=== PATIENT | female | born 1930 | race Caucasian/White ===

== ENCOUNTER → 2016-05-17 | Day surgery (SDC) | payer OTHER, BC, MEDICAID ==
[~2016-05-17] MED LIST: LIDO/EPI 1% **for epidural** 30 ML SDV ONE; SODIUM TETRADECYL SULFATE 60 MG/2 ML VIAL IV ONE
--- NOTE | 2016-05-17 15:38 | IR ---
Laser Ablation, Left Great Saphenous Vein Multivessel Sclerotherapy INDICATION: Below the knee incompetence of the great saphenous system, ulceration, and cellulitis. Significant edema. Informed Consent: Obtained from the patient. Risks and benefits were discussed. Cross Cutting Measure: Patient's current list of medications including all known prescriptions, over -the-counters, herbals, and vitamin/mineral/dietary supplements are reviewed. Medications' name, dos age, frequency, and route of administration are confirmed. Patient is a non-smoker. Prophylactic Antibiotic: Cefazolin was not ordered and administered for antimicrobial prophylaxis be cause it was not medically necessary. VTE Prophylaxis: There is not an order for VTE prophylaxis to be given within 24 hours of the proced ure end time. VTE prophylaxis was not given because it was not medically necessary. Technique: Patient is placed in supine position. A "timeout" procedure was performed to identify th e correct patient and the correct procedure. 1% Xylocaine was used for local anesthetic. All elemen ts of maximal sterile barrier technique, including cap, mask, sterile gown, sterile gloves, large kallie rile sheet, hand hygiene, and 2% chlorhexidine for cutaneous antisepsis, followed. Ultrasound evaluation of potential access site was performed. After successfully identifying a paten t vessel, ultrasound guidance was used to puncture the vessel. A permanent recording was created for the patient's record. When ultrasound is used, sterile gel and probe covers are used. The great saphenous vein is accessed under ultrasound guidance at the level of the ankle. Micropunct ure sheath is advanced, followed by laser catheter, advanced to lower thigh, just above where the inc ompetent tributary comes off of. Multivessel sclerotherapy was performed using 1% SDS. This sufficiently covered multiple tributaries throughout the calf and the ulceration region, as well as the distal thigh. Tumescent anesthesia is delivered along the course of the great saphenous vein, and laser ablation wa s performed. A total of 2497 joules were delivered in 416 seconds. The patient tolerated the proced ure well. Medication: Local anesthetics only. IMPRESSIONS 1. Great saphenous vein ablated from ankle to distal thigh. 2. Multivessel sclerotherapy performed. 3. Patent and competent deep system. PLAN 1. We were able to apply the patient's thigh high compression stocking today, after the procedure, a nd after application of wound care dressing to the ulcer. 2. I would highly recommend keeping this dressing on for the next 5 days, x24 hours with sleep. 3. After that, the patient can graduate down to knee heights for only when she is awake. 4. Continued application of knee-high compression is recommended until this ulcer heals, and subsequ ently intermittently on an as-needed basis to prevent future problems from developing. Follow up: The patient will follow up with me in 1 month.
== END | disposition home or self-care (01) ==
LOC: FIMAGING 08:44
PROVIDERS: ATTEND Radiology Diagnostic Radiology
PROC: 065Q3ZZ Destruction of Left Saphenous Vein, Percutaneous Approach (ICD-10-PCS; principal; 2016-05-17)
PROC: 065Y3ZZ Destruction of Lower Vein, Percutaneous Approach (ICD-10-PCS; principal; 2016-05-17)
DX: I83.028 Varicose veins of left lower extremity with ulcer other part of lower leg (principal); I83.892 Varicose veins of left lower extremity with other complications

== ENCOUNTER 2016-05-23 18:16 | Emergency (ER) | payer OTHER, BC, MEDICAID ==
[2016-05-23 18:24] VITALS: TEMP 98.1
--- NOTE | 2016-05-23 19:35 | EDPHY ---
H & P Stated Complaint: Chronic wound LLE x "yrs" Home health thinks it's worse; sent for eval Time Seen by Provider: 05/23/16 19:24 HPI/ROS: CHIEF COMPLAINT: Venous stasis wound HISTORY OF PRESENT ILLNESS: The patient is an 86-year-old female with a history of venous stasis with a wound to her left anterior chen has been present for greater than 2 years. She was admitted to the hospital this summer and was culture positive for MR JACKSON treated with doxycycline. She follows at the wound clinic with Dr. Soumya Ocampo. She also has history of atrial fibrillation and is on Eliquis. She gets 3 times a week wound care from home health. They were concerned today that it is starting to look worse. There is mild erythema around the wound. The son states that it typically is only about 1 cm extending around the wound and now is about 5 or 6. It is slightly warm to touch. She is afebrile. No drainage. Son states that is slightly foul smelling. REVIEW OF SYSTEMS: Constitutional: denies: chills, fever, recent illness, recent injury EENTM: denies: blurred vision, double vision, nose congestion Respiratory: denies: cough, shortness of breath Cardiac: denies: chest pain, irregular heart rate, lightheadedness, palpitations Gastrointestinal/Abdominal: denies: abdominal pain, diarrhea, nausea, vomiting, blood streaked stools Genitourinary: denies: dysuria, frequency, hematuria, pain Musculoskeletal: denies: joint pain, muscle pain Skin: See HPI Neurological: denies: headache, numbness, paresthesia, tingling, dizziness, weakness Hematologic/Lymphatic: denies: blood clots, easy bleeding, easy bruising Immunologic/allergic: denies: HIV/AIDS, transplant EXAM: GENERAL: Well-appearing, well-nourished and in no acute distress. HEAD: Atraumatic, normocephalic. EYES: Pupils equal round and reactive to light, extraocular movements intact, sclera anicteric, conjunctiva are normal. ENT: TMs normal, nares patent, oropharynx clear without exudates. Moist mucous membranes. NECK: Normal range of motion, supple without lymphadenopathy or JVD. LUNGS: Breath sounds clear to auscultation bilaterally and equal. No wheezes rales or rhonchi. HEART: Regular rate and rhythm without murmurs, rubs or gallops. ABDOMEN: Soft, nontender, normoactive bowel sounds. No guarding, no rebound. No masses appreciated. BACK: No CVA tenderness, no spinal tenderness, step-offs or deformities EXTREMITIES: Quarter size chronic wound to left anterior chen with another dime -sized lesion next to it. Mild surrounding erythema/petechiae approximately 8 cm in diameter. No purulence. NEUROLOGICAL: Cranial nerves II through XII grossly intact. Normal speech, normal gait. 5/5 strength, normal movement in all extremities, normal sensation PSYCH: Normal mood, normal affect. SKIN: Warm, dry, normal turgor, no visible rashes or lesions. Source: Patient Exam Limitations: No limitations - Personal History Current Tetanus Diphtheria and Acellular Pertussis (TDAP): Yes - Medical/Surgical History Hx Asthma: No Hx Chronic Respiratory Disease: No Hx Diabetes: No Hx Cardiac Disease: Yes Hx Renal Disease: No Hx Cirrhosis: No Hx Alcoholism: No Hx HIV/AIDS: No Hx Splenectomy or Spleen Trauma: No Other PMH: Coronary artery disease status post CABG, atrial fibrillation, congestive heart failure - Family History Significant Family History: No pertinent family hx - Social History Smoking Status: Never smoked Alcohol Use: Sober Drug Use: None Constitutional: Initial Vital Signs Temperature (C) 36.7 C 05/23/16 18:20 Heart Rate 76 05/23/16 18:20 Respiratory Rate 18 05/23/16 18:20 Blood Pressure 140/76 H 05/23/16 18:20 O2 Sat (%) 95 05/23/16 18:20 O2 Delivery Mode Room Air Allergies/Adverse Reactions: Sulfa (Sulfonamide Antibiotics) Allergy (Unknown, Verified 05/23/16 18:18) Home Medications: Medication Instructions Recorded Apixaban [Eliquis] 5 mg PO BID 10/08/14 Furosemide [Lasix] 20 mg PO BID 10/08/14 Pramipexole Di-HCl [Pramipexole ER] 0.75 mg PO HS 10/08/14 Simvastatin [Zocor] 20 mg PO HS 10/08/14 Sotalol HCl [Sotalol] 80 mg PO BID 10/08/14 oxyCODONE IR [Oxycodone Ir (RX)] 5 mg PO Q6H PRN 10/08/14 traMADol [Ultram] 50 mg PO TID PRN 10/08/14 Lorazepam 5 mg PO TID 05/11/16 Doxycycline Hyclate [Vibramycin] 100 mg PO BID #30 cap 05/23/16 Losartan Potassium [Cozaar 50 mg 50 mg PO 05/23/16 (*)] Medical Decision Making ED Course/Re-evaluation: 7:40 p.m. I discussed the case with Dr. Mark Rice. We agreed to start the patient back on doxycycline and have her follow up tomorrow in the wound care clinic with Dr. Ocampo. Patient and son agree with this plan. The patient is not toxic appearing. She is afebrile. Her wound was redressed and cultures sent. Some of her wound appears to be more consistent with a contusion. She states that this is likely from her compression stocking that she had been wearing since the ablation. She is now fully anticoagulated on Eliquis did and is no longer wearing stockings. Differential Diagnosis: Partial list of the Differential diagnosis considered include but were not limited to; venous stasis ulcer, wound infection and although unlikely based on the history and physical exam, I also considered trauma, DVT. I discussed these differential diagnoses and the plan with the patient as well as the usual and expected course. The patient understands that the diagnosis is provisional and that in medicine we are not always correct and that further workup is often warranted. Usual and customary warnings were given. All of the patient's questions were answered. The patient was instructed to return to the emergency department should the symptoms at all worsen or return, otherwise to followup with the physician as we discussed. - Data Points Microbiology Results: MICROBIOLOGY 05/23/16 19:53 Leg - Anaerobic Tube/Swab Gram Stain - Final Medications Given: Discontinued Medications Doxycycline Hyclate (Doxycycline Hyclate) 100 mg PO EDNOW ONE PRN Reason: Protocol Stop: 05/23/16 19:40 Last Admin: 05/23/16 20:08 Dose: 100 mg Departure - Departure Disposition: Home, Routine, Self-Care Clinical Impression: Wound infection Condition: Fair Instructions: Wound Infection (ED), Doxycycline (By mouth) Referrals: Anselmo Kunz MD [Primary Care Provider] - As per Instructions Soumya Ocampo MD [Medical Doctor] - As per Instructions Prescriptions: Doxycycline Hyclate [Vibramycin] 100 mg PO BID #30 cap
[2016-05-23] MEDS ORDERED: DOXYCYCLINE HYCLATE 100 MG CAP/TAB PO ONE (19:39)
[2016-05-23 20:08] VITALS: BP 127/101; PULSE 73; RESP 16; O2SAT 97
== END 2016-05-23 20:07 | disposition home or self-care (01) ==
DX: L08.9 Local infection of the skin and subcutaneous tissue, unspecified (principal); I25.810 Atherosclerosis of coronary artery bypass graft(s) without angina pectoris; I50.9 Heart failure, unspecified

== ENCOUNTER → 2016-05-25 | Outpatient (CLI) | payer OTHER, BC, MEDICAID | LOC: BHFA 15:00 | PROVIDERS: ATTEND Internal Medicine Cardiovascular Disease | DX: I48.91 Unspecified atrial fibrillation (principal); I25.10 Atherosclerotic heart disease of native coronary artery without angina pectoris; I10 Essential (primary) hypertension; G47.30 Sleep apnea, unspecified; E78.5 Hyperlipidemia, unspecified ==

== ENCOUNTER → 2017-05-04 | Outpatient (CLI) | payer OTHER, MEDICAID | LOC: FIMAGING 14:36 | PROVIDERS: ATTEND Physician Assistant | DX: R22.42 Localized swelling, mass and lump, left lower limb (principal); R60.9 Edema, unspecified; R06.02 Shortness of breath; R94.31 Abnormal electrocardiogram [ECG] [EKG]; I25.10 Atherosclerotic heart disease of native coronary artery without angina pectoris ==

== ENCOUNTER → 2017-05-18 | Outpatient (CLI) | payer OTHER, MEDICAID ==
[~2017-05-18] MED LIST changes: -LIDO/EPI 1% **for epidural** 30 ML SDV ONE; +REGADENOSON 0.4 MG/5 ML SYR IVP ONE; -SODIUM TETRADECYL SULFATE 60 MG/2 ML VIAL IV ONE
--- NOTE | 2017-05-18 15:28 | CPR ---
[f rep st] NONINVASIVE CARDIAC PROCEDURE REPORT DATE OF PROCEDURE: 05/18/2017 PROCEDURE: Lexiscan nuclear stress test. REASON FOR TEST: 1. Known coronary artery disease, coronary artery bypass graft and valve surgery in 2013. 2. History of atrial fibrillation. ORDERING: SYLVIE Branch. PRIMARY SENIOR CONSUMER INSIGHTS CONSULTANT: Juan R Teague MD DESCRIPTION: Resting EKG shows a sinus bradycardia with a rate of 55. First-degree AV block, anteri or Q-waves. She is asymptomatic at time of test. Resting blood pressure 130/72. Resting heart rate 55. Oxygen saturation 97%. Stress portion: Lexiscan was injected rapidly, followed by saline flush. Cardiolite was then injecte d, followed by saline flush. She remained asymptomatic through the testing. Peak heart rate 68. Pe ak blood pressure 152/82. Oxygen saturation 99%. Occasional PVC on EKG. Recovery: She spontaneously recovered. Resting blood pressure 142/78. Resting heart rate 66. Oxyg en saturation 99%. Resting EKG at 5 minutes of recovery shows a junctional escape rhythm with a rate of 66. At this time, she currently is stable for nuclear imaging. /[id number]/MODL
== END ==
LOC: FIMAGING 12:49
PROVIDERS: ATTEND Physician Assistant
DX: R00.1 Bradycardia, unspecified (principal); I25.10 Atherosclerotic heart disease of native coronary artery without angina pectoris; Z95.1 Presence of aortocoronary bypass graft
CPT/HCPCS: 78452; 93017; 93306; A9500; J2785

== ENCOUNTER 2018-06-12 14:23 | Inpatient (IN) | payer OTHER, MEDICAID ==
--- NOTE | 2018-06-12 14:47 | EDPHY ---
H & P Stated Complaint: SENT FROM [facility] "TO GET THE WATER OFF" Time Seen by Provider: 06/12/18 14:47 HPI/ROS: CHIEF COMPLAINT: "Dr. Teague wanted me to come in and get some of this water off " HISTORY OF PRESENT ILLNESS: The patient is an 88 y/o female with a history of cardiac disease and chronic left leg infection arriving with her family member for evaluation of leg swelling at the recommendation of her drug abuse worker. She saw Dr. Teague last week for routine follow up and today she says they called her and directed her to come to the ED to be admitted. She has persistent leg edema and takes diuretics for this. She has gained 15-20 pounds over the last year. She urinates frequently. She feels fatigued when walking "from carrying all this weight around." She has a chronic left LE wound, treated by the Wound Clinic, and this wound breaks down when her leg is edematous. She denies dyspnea , chest pain. She is here for admission with plans for IV Lasix drip and dobutamine. REVIEW OF SYSTEMS: A ten system review of systems was performed and is negative with the exception of the items mentioned in the HPI. Past medical history: 1. Atrial fibrillation - Sotalol 2. CAD 3. Hyperlipidemia 4. Hypertension 5. Obstructive sleep apnea 6. Chronic infection of left lower extremity - followed by Wound Clinic 7. Right heart failure Past surgical history: 1. CABG x2 - 22 years ago 2. Atrial septal defect repair 3. Cataract surgery 4. 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 Hysterectomy Family history: Noncontributory Social history: Occasional alcohol use. Nonsmoker. Oaziuqut-uc-dle at bedside. General Appearance: Alert. Vital signs reviewed. BP 138/77. Eyes: Pupils equal and round, no conjunctival injection, no discharge. Anicteric. ENT, Mouth: Mucous membranes are moist, no oropharyngeal erythema or edema. Neck: No lymphadenopathy, supple. No JVD. Respiratory: Lungs are clear to auscultation; no wheezes, rales, or rhonchi. Cardiovascular: Regular rate and rhythm; systolic, S3 S4. Gastrointestinal: Abdomen is soft and nontender, no masses or organomegaly, easily reducible umbilical hernia. Skin: Warm and dry, no rashes on exposed skin, normal color. Back: Nontender to palpation over the thoracolumbar spine. No CVAT. Extremities: 3+ lower extremity edema on left to level of the knee, no calf tenderness or swelling. Chronic venous stasis changes LLE. Pulses: 1+ dorsalis pedis pulses bilaterally Neurological: Alert and oriented. Moving all four extremities spontaneously. Psychiatric: Normal affect. - Personal History Current Tetanus/Diphtheria Vaccine: Yes - Medical/Surgical History Hx Asthma: No Hx Chronic Respiratory Disease: No Hx Diabetes: No Hx Cardiac Disease: Yes Hx Renal Disease: No Hx Cirrhosis: No Hx Alcoholism: No Hx HIV/AIDS: No Hx Splenectomy or Spleen Trauma: No Other PMH: Coronary artery disease status post CABG, atrial fibrillation, congestive heart failure - Social History Smoking Status: Never smoked Constitutional: Initial Vital Signs Temperature (C) 36.5 C 06/12/18 14:30 Heart Rate 66 06/12/18 14:30 Respiratory Rate 20 06/12/18 14:30 Blood Pressure 138/77 H 06/12/18 14:30 O2 Sat (%) 96 06/12/18 14:30 O2 Delivery Mode Room Air Allergies/Adverse Reactions: Sulfa (Sulfonamide Antibiotics) Allergy (Unknown, Verified 06/12/18 14:27) Home Medications: Medication Instructions Recorded Apixaban [Eliquis] 5 mg PO BID 06/12/18 Losartan Potassium [Cozaar 25 mg 25 mg PO DAILY 06/12/18 (*)] Pramipexole Di-HCl [Pramipexole ER] 0.75 mg PO HS 06/12/18 Pravastatin Sodium 40 mg PO HS 06/12/18 Sotalol HCl [Betapace 80 MG (*)] 80 mg PO BID 06/12/18 Torsemide [Demadex] 20 mg PO DAILY PRN 06/12/18 Torsemide [Demadex] 40 mg PO DAILY 06/12/18 oxyCODONE IR [Oxycodone Ir (*)] 5 mg PO BID PRN 06/12/18 traMADol [Ultram 50 mg (*)] 50 - 100 mg PO DAILY PRN 06/12/18 Medical Decision Making ED Course/Re-evaluation: 0585: Consulted with Dr. Teague, patient's drug abuse worker. He will admit patient and will see her in the ED. The plan is to treat her worsening LE edema with IV lasix infusion and dobutamine. Differential Diagnosis: I considered a ddx of LE edema that includes but is not limited to medication and/or dietary indiscretion, heart failure, infection, DVT, compartment syndrome. - Data Points Laboratory Results: Laboratory Results 06/12/18 14:50 06/12/18 14:50 Medications Given: Acetaminophen (Tylenol) 650 mg PO Q4HRS PRN PRN Reason: Pain, Mild/Fever, Can Take PO Stop: 12/09/18 16:06 Last Admin: 06/13/18 05:40 Dose: 650 mg Apixaban (Eliquis) 5 mg PO BID JOSE MANUEL Stop: 12/09/18 20:59 Last Admin: 06/14/18 08:44 Dose: 5 mg Furosemide 100 mg/ Dextrose 110 mls @ 10 mls/hr IV CONT JOSE MANUEL PRN Reason: Protocol Stop: 12/09/18 18:29 Last Admin: 06/14/18 05:35 Dose: 110 mls Dobutamine HCl/Dextrose (Dobutamine 2000 Mcg/Ml (Premix)) 250 mls @ 0 mls/hr IV CONT JOSE MANUEL; Per Protocol PRN Reason: Protocol Stop: 12/09/18 18:29 Last Admin: 06/13/18 14:47 Dose: 250 mls Losartan Potassium (Cozaar) 25 mg PO DAILY JOSE MANUEL Stop: 12/10/18 08:59 Last Admin: 06/14/18 08:43 Dose: 25 mg Pramipexole Dihydrochloride (Mirapex) 0.75 mg PO HS JOSE MANUEL Stop: 12/09/18 20:59 Last Admin: 06/13/18 20:40 Dose: 0.75 mg Pravastatin Sodium (Pravachol) 40 mg PO HS JOSE MANUEL Stop: 12/09/18 20:59 Last Admin: 06/13/18 20:38 Dose: 40 mg Sotalol HCl (Betapace) 80 mg PO BID JOSE MANUEL Stop: 12/09/18 20:59 Last Admin: 06/14/18 08:44 Dose: 80 mg Tramadol HCl (Ultram) 50 - 100 mg PO DAILY PRN PRN Reason: Pain, Moderate Stop: 12/09/18 17:37 Last Admin: 06/13/18 20:37 Dose: 100 mg Discontinued Medications Potassium Chloride (Klor-Con) 30 meq PO ONCE ONE PRN Reason: Protocol Stop: 06/12/18 20:19 Last Admin: 06/12/18 21:25 Dose: 30 meq Potassium Chloride (Klor-Con) 10 - 40 meq PO ONCE ONE PRN Reason: Protocol Stop: 06/13/18 08:35 Last Admin: 06/13/18 09:01 Dose: 10 meq Potassium Chloride (Klor-Con) 20 meq PO ONCE ONE PRN Reason: Protocol Stop: 06/13/18 20:04 Last Admin: 06/13/18 20:35 Dose: 20 meq Potassium Chloride (Klor-Con) 10 - 40 meq PO ONCE ONE PRN Reason: Protocol Stop: 06/14/18 07:29 Last Admin: 06/14/18 08:43 Dose: 10 meq Departure - Departure Disposition: [facility] Clinical Impression: Edema Qualifiers: Edema type: unspecified Qualified Code(s): R60.9 - Edema, unspecified Condition: Fair Report Scribed for: Hailey Kulkarni Report Scribed by: Darcie Orr Date of Report: 06/12/18 Time of Report: 15:41 Physician Review and Approval Statement: 06/12/18 14:47 Portions of this note were transcribed by the medical transcriber. I, Dr. Hailey Kulkarni, personally performed the history, physical exam, and medical decision- making; and confirmed the accuracy of the information in the transcribed note.
[2018-06-12 15:36] LABS: PLATELET COUNT 259 10^3/uL (150-400)
[2018-06-12] MEDS ORDERED: ALTEPLASE 2 MG VIAL IVP PRN (16:00)
[2018-06-12] MEDS ORDERED: oxyCODONE IR 5 MG TAB PO PRN (17:38)
--- NOTE | 2018-06-12 18:21 | GHP ---
[f rep st] HISTORY AND PHYSICAL DATE OF ADMISSION: 06/12/2018 CHIEF COMPLAINT: "Doctor, I'm having leg swelling." HISTORY OF PRESENT ILLNESS: The patient is an 88-year-old female with a history of paroxysmal atrial fibrillation on sotalol, coronary artery disease status post 2-vessel bypass, dyslipidemia, hyperten james, obstructive sleep apnea, prior ASD repair, chronic right heart failure, and chronic cellulitis of the left lower extremity with chronic and severe bilateral peripheral edema. She presented to our office on 06/09/2018, with complaints of severe worsening swelling of her lower extremities. She fe els she has gained another 15 to 20 pounds over the last year. This makes it very difficult for her to be mobile and is intermittently caused problems with her leg on the left side splitting open and t hen having wound disunion and chronic weeping edema from the wound. CURRENT MEDICATIONS: Include apixaban 5 mg p.o. b.i.d., losartan 25 mg p.o. daily, oxycodone 5 mg p. o. b.i.d., pramipexole extended release 0.75 mg p.o. q.h.s., pravastatin 40 mg p.o. daily, sotalol 80 mg p.o. b.i.d. torsemide 20 mg p.o. daily intermittently with alternating with 40 mg daily, tramadol 50 to 100 as needed for discomfort or pain. ALLERGIES: She is known to be have an allergy to sulfa drugs. PAST MEDICAL/SURGICAL HISTORY: Significant for atrial septal defect repair, coronary bypass surgery as noted, hip replacement on the left, hysterectomy, prior cataract surgery. FAMILY HISTORY: Pertinent for ovarian neoplasm, colon cancer, hypertension, and dyslipidemia. SOCIAL HISTORY: She drinks daily and a moderate amount has a cup of coffee daily. She does not smok e or abuse illicit drugs. REVIEW OF SYSTEMS: Mainly pertinent for those that were noted in the HPI in the constitutional level . She has fatigue and severe and worsening swelling in her abdomen, hips, pelvis, and lower extremit ies. She has not experienced chest pain, syncope, palpitations, diaphoresis, or claudication. She d oes have mild shortness of breath with ambulation. She has not had nausea, vomiting, reflux, or bloo d in her stools. PHYSICAL EXAMINATION: GENERAL: she appears relatively comfortable lying flat in the bed. She is diego rt and oriented x3. She is cooperative with the examination. VITAL SIGNS: Blood pressure 138/77, p ulse is 66 and regular, respirations 16 and unlabored. Oxygen saturation 96% on room air. Her tempe rature is 36.5 degrees Celsius. NECK: Reveals no JVD. HEART: Reveals a normal S1 and S2 with a arteaga mmation S3 and S4 gallop. She does have a systolic murmur consistent with tricuspid regurgitation. LUNGS: Clear to auscultation anteriorly. ABDOMEN: Benign, is soft with positive bowel sounds. It is nondistended, nontender. EXTREMITIES: Reveal severe 3 to 4+ pitting edema bilaterally of the pre tibial area. She also has presacral edema as well. On the left side, she has chronic erythema consi stent with chronic cellulitis versus chronic venous stasis changes. LABORATORY STUDIES: Reveal a white count of 6.51, H and H 12.8 and 39.6 with a platelet count of 259 . The differential is normal. Sodium is 137, potassium 3.4, chloride 103, carbon dioxide 27, anion gap is 7, BUN and creatinine are 32 and 0.9. N terminal proBNP level of 374. IMPRESSION/PLAN: The patient has evidence of relatively severe right heart failure that I think woul d benefit from a dobutamine holiday. We have arranged for her to have a dual lumen peripherally inse rted central catheter placed today in Interventional Radiology and plan to place her on a continuous Lasix drip with 10 mg given intravenously per hour and not to be titrated. She will obviously need t o be on the electrolyte protocol for both potassium and magnesium. Because of her mobility issues an d her difficulty with urinary frequency, she will require a Villar catheter so we can carefully track her intake and output. She also be placed on dobutamine at 5 mcg/kilos per minute, which will not be titrated up for blood pressure, but should help her right heart, which I believe is in part failing secondary to her remote history of atrial septal defect and chronic right heart strain as an adult co ngenital heart problem. I am hopeful that we can get off many pounds of fluid over the next several days, and I do anticipate her to be in the hospital for 2 to 3 days while we try to reduce the severi ty of her peripheral edema and the pain that is being caused by the stretching of her skin from the r ight heart failure, which is currently present. I have discussed the risks and benefits of this cour se of action with the patient and her daughter who understand and willing to proceed as planned. /[id number]/MODL
[2018-06-12] MEDS ORDERED: PROTOCOL MAGNESIUM 1 DOSE IV PRN (19:55)
[2018-06-12] MEDS ORDERED: PROTOCOL POTASSIUM 1 DOSE MISC PRN (19:55)
[2018-06-12] MEDS: DOBUTamine/DEXTROSE 250 ML IV SCH (20:16)
[2018-06-12] MEDS: FUROSEMIDE 100 MG in D5W 100 ML IV SCH (20:16)
[2018-06-12] MEDS ORDERED: POTASSIUM CL 10 MEQ TAB PO ONE (20:18)
[2018-06-12] MEDS: PRAVASTATIN SODIUM 40 MG TAB PO SCH (21:19)
[2018-06-12] MEDS: PRAMIPEXOLE 0.25 MG TAB PO SCH (21:19)
[2018-06-12] MEDS: SOTALOL HCL 80 MG TAB PO SCH (21:20)
[2018-06-12] MEDS: APIXABAN 5 MG TAB PO SCH (21:20)
[2018-06-13] MEDS: ACETAMINOPHEN 325 MG TAB PO PRN (05:40)
[2018-06-13] MEDS: FUROSEMIDE 100 MG in D5W 100 ML IV SCH ×2 (05:44→14:47)
--- NOTE | 2018-06-13 07:05 | CPEKG ---
Test Reason : OPEN Blood Pressure : / mmHG Vent. Rate : 068 BPM Atrial Rate : 067 BPM P-R Int : 218 ms QRS Dur : 102 ms QT Int : 468 ms P-R-T Axes : 021 -15 029 degrees QTc Int : 498 ms Sinus rhythm Borderline prolonged MA interval Borderline left axis deviation Nonspecific T abnrm, anterolateral leads Borderline prolonged QT interval Confirmed by Neftaly Judd ([id number]) on 06/13/2018 7:05:17 AM Referred By: NEFTALY JUDD Confirmed By:Neftaly Judd
[2018-06-13] MEDS: SOTALOL HCL 80 MG TAB PO SCH ×2 (08:32→20:38)
[2018-06-13] MEDS: APIXABAN 5 MG TAB PO SCH ×2 (08:32→20:38)
[2018-06-13] MEDS: LOSARTAN POTASSIUM 25 MG TAB PO SCH (08:32)
[2018-06-13] MEDS ORDERED: POTASSIUM CL 10 MEQ TAB PO ONE ×2 (08:34→20:03)
--- NOTE | 2018-06-13 09:12 | PDMN ---
Medical Necessity Medical necessity: [facility] [place] M190 Heart Failure: 88 yo w/ severe/worsening edema to abd, hips, pelvis and BLE w/ fatigue and some SOB w/ ambulation. Cardiology consulted, pt in severe right HF, PICC line placed, Dobutamine and Lasix gtts ordered. Electrolyte monitoring. Urinary cath placed as pt has difficulty ambulating and to track I&Os. Cont tele monitoring. Meets IP status med nec for severe HF w/ anasarca and dobutamine gtt requiring close monitoring. Anticipate>2MN for monitoring and tx of the above. Hx paroxysmal afib on sotalol, CAD s/p 2 vessel bypass, dyslipidemia, HTN, ANNEL, prior ASD repair, chronic R HF, chronic cellulitis LLE w/ chronic and severe B/L peripheral edema.
--- NOTE | 2018-06-13 09:28 | CPEKG ---
Test Reason : OPEN Blood Pressure : / mmHG Vent. Rate : 069 BPM Atrial Rate : 068 BPM P-R Int : 245 ms QRS Dur : 090 ms QT Int : 479 ms P-R-T Axes : -18 -17 009 degrees QTc Int : 514 ms Sinus rhythm Ventricular premature complex Prolonged MN interval Borderline left axis deviation Low voltage, precordial leads Nonspecific T abnormalities, anterior leads Prolonged QT interval Confirmed by Kedar Garrison ([id number]) on 06/13/2018 9:27:52 AM Referred By: Juan R Teague Confirmed By:Kedar Garrison
--- NOTE | 2018-06-13 12:40 | ASMTCMCOM ---
CM Note CM Note Notes: Pt is a 88 y/o female admitted for lower extremity edema. PICC line placed to assist w/ right heart failure. Pt is a [facility] client. CM spoke to Elizabeth Schmidt (P#: [phone]) and provided updates. Pt currently goes to outpatient [facility] day [facility] Tuesday and from 9:30AM to 3PM. Pt receives 3x/wk bathing and personal care from a REFINING SUPERVISOR. CM to follow. Plan: Continue w/ [facility] outpatient and HC; REFINING SUPERVISOR Date Signed: 06/13/2018 12:39 PM Electronically Signed By:MARIANELA Anderson
[2018-06-13] MEDS: DOBUTamine/DEXTROSE 250 ML IV SCH (14:47)
[2018-06-13] MEDS: traMADol 50 MG TAB PO PRN (20:37)
[2018-06-13] MEDS: PRAVASTATIN SODIUM 40 MG TAB PO SCH (20:38)
[2018-06-13] MEDS: PRAMIPEXOLE 0.25 MG TAB PO SCH (20:40)
[2018-06-14] MEDS: FUROSEMIDE 100 MG in D5W 100 ML IV SCH ×2 (05:35→18:22)
[2018-06-14] MEDS ORDERED: POTASSIUM CL 10 MEQ TAB PO ONE ×2 (07:28→19:26)
[2018-06-14] MEDS: LOSARTAN POTASSIUM 25 MG TAB PO SCH (08:43)
[2018-06-14] MEDS: APIXABAN 5 MG TAB PO SCH ×2 (08:44→21:00)
[2018-06-14] MEDS: SOTALOL HCL 80 MG TAB PO SCH ×2 (08:44→21:00)
[2018-06-14] MEDS: DOBUTamine/DEXTROSE 250 ML IV SCH (12:25)
[2018-06-14] MEDS ORDERED: BUMETANIDE 2 MG TAB PO SCH (15:00)
[2018-06-14] MEDS: ACETAMINOPHEN 325 MG TAB PO PRN (16:07)
[2018-06-14] MEDS: METOLAZONE 5 MG TAB PO SCH (16:10)
[2018-06-14] MEDS ORDERED: MAGNESIUM HYDROXIDE 30 ML UDCUP PO PRN (18:08)
[2018-06-14] MEDS ORDERED: POLYETHYLENE GLYCOL 3350 17 GM PKT PO PRN (18:08)
[2018-06-14] MEDS ORDERED: BISACODYL 10 MG SUPP PR PRN (18:08)
[2018-06-14] MEDS ORDERED: LACTULOSE 20 GM/30 ML UDCUP PO PRN (18:08)
[2018-06-14] MEDS: PRAVASTATIN SODIUM 40 MG TAB PO SCH (21:00)
[2018-06-14] MEDS: PRAMIPEXOLE 0.25 MG TAB PO SCH (21:00)
[2018-06-14] MEDS: SENNOSIDES/DOCUSATE SODIUM TAB PO SCH (21:01)
[2018-06-14] MEDS: traMADol 50 MG TAB PO PRN (21:05)
[2018-06-15] MEDS: FUROSEMIDE 100 MG in D5W 100 ML IV SCH ×2 (04:32→16:55)
[2018-06-15] MEDS: DOBUTamine/DEXTROSE 250 ML IV SCH ×2 (04:33→08:26)
[2018-06-15] MEDS ORDERED: POTASSIUM CL 10 MEQ TAB PO ONE ×3 (07:43→19:12)
[2018-06-15] MEDS: METOLAZONE 5 MG TAB PO SCH (10:08)
[2018-06-15] MEDS: APIXABAN 5 MG TAB PO SCH ×2 (10:11→20:33)
[2018-06-15] MEDS: SENNOSIDES/DOCUSATE SODIUM TAB PO SCH ×2 (10:11→20:32)
[2018-06-15] MEDS: LOSARTAN POTASSIUM 25 MG TAB PO SCH (10:12)
[2018-06-15] MEDS: SOTALOL HCL 80 MG TAB PO SCH ×2 (10:16→20:34)
[2018-06-15] MEDS: PRAMIPEXOLE 0.25 MG TAB PO SCH (20:32)
[2018-06-15] MEDS: PRAVASTATIN SODIUM 40 MG TAB PO SCH (20:32)
[2018-06-15] MEDS: ACETAMINOPHEN 325 MG TAB PO PRN (20:36)
[2018-06-15] MEDS: traMADol 50 MG TAB PO PRN (20:38)
[2018-06-16] MEDS: APIXABAN 5 MG TAB PO SCH (08:38)
[2018-06-16] MEDS: METOLAZONE 5 MG TAB PO SCH (08:38)
[2018-06-16] MEDS: SENNOSIDES/DOCUSATE SODIUM TAB PO SCH (08:38)
[2018-06-16] MEDS: SOTALOL HCL 80 MG TAB PO SCH (08:38)
[2018-06-16] MEDS: LOSARTAN POTASSIUM 25 MG TAB PO SCH (08:43)
[2018-06-16 10:46] VITALS: BP 117/73
--- NOTE | 2018-06-16 14:33 | ASMTLACE ---
LACE Length of stay for Answers: 2 days current admission Acuity / Level of Answers: Yes Care: Did the patient have an inpatient admission? Comorbidities - select Answers: Congestive heart failure all that apply Coronary Artery Disease Opioid dependence / Chronic pain Previous myocardial infarction Other Notes: AFib; HTN; HLD # of Emergency department Answers: 1-2 visits in the last 6 months Score: 16 Date Signed: 06/16/2018 02:33 PM Electronically Signed By:MARIANELA Anderson
--- NOTE | 2018-06-16 14:40 | ASMTDCNOTE ---
Case Management Discharge Discharge Order Complete? Answers: Yes Patient to Obtain Answers: Independently Medications Transportation Arranged Answers: Family/Friends EMTALA Complete Answers: No Case Management Transport Answers: No Form Complete Faxed Final Orders Answers: Yes Agency/Facility Transfer Answers: Yes Report Printed & Faxed to Receiving Agency Family Notified Answers: No Discharge Comments Notes: Pts case discussed w/ Alec, LIGHTING ENGINEERING TECHNICIAN. Pt is being d/c'd today. CM met w/ pt for dispo planning. Pt reports that her son will be able to pick her up. CM sent d/c paperwork to [facility] (F#: [phone]). CM spoke to Cristina at [facility] and notified her of the d/c. CM available for changes. Plan: Continue w/ / outpatient day program from 9:30AM to 3 PM in addition to HC, HYDRAULIC TESTER all through [facility] Date Signed: 06/16/2018 02:39 PM Electronically Signed By:MARIANELA Anderson
--- NOTE | 2018-06-16 15:14 | GDS ---
[f rep st] DISCHARGE SUMMARY ADMIT DIAGNOSES: 1. Peripheral edema. 2. Right heart failure. 3. History of atrial septal defect status post repair. 4. Paroxysmal atrial fibrillation. DISCHARGE DIAGNOSES: 1. Peripheral edema, improved. 2. Right heart failure, status post dobutamine holiday with continuous infusion of Lasix. 3. History of atrial septal defect status post repair. 4. Paroxysmal atrial fibrillation. FOR DETAILED HISTORY OF PRESENT ILLNESS: Please see the recently dictated H and P. 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 Her body weight had increased related to sodium and water gain, which has been progressive, and the patient felt that she was going to be at risk for weeping edema of her lower extremities. For this reason, she wanted to try an attempt at do pamine and dobutamine infusion to improve her clinical symptoms. HOSPITAL COURSE: The patient was admitted to the hospital and underwent successful placement of a du al lumen PICC catheter. The patient received an intravenous infusion of dobutamine at 5 mcg/kg which was not titrated, as well as 10 mg/hr of Lasix. Over the course of 4 days, the patient gradually lo st approximately 7 pounds of fluid with improvement in her overall symptoms and vital signs. Her pedro mistries, at the time of discharge, reveal a sodium of 133, BUN and creatinine of 44 and 1.5, up from 23 and 0.9, indicating we probably reached our maximum ability to diurese her. Magnesium was 2.4 an d then terminal proBNP level was 187. Her potassium is 4.0. At the time of her discharge, the patient is medically stable and ready for discharge to home. DISCHARGE MEDICATIONS: Will include: Eliquis 5 mg p.o. twice daily, Demadex 20 mg p.o. daily, and 4 0 mg p.o. on Tuesday and Tuesday, if needed. We are adding metolazone, Zaroxolyn 5 mg p.o. daily to her medical regimen to try to preserve the results of diuresis that we have achieved. She will be o n tramadol, Ultram 100 mg p.o. daily as needed for pain, sotalol 80 mg p.o. twice daily, pravastatin 40 mg p.o. daily, pramipexole ER extended release formulation 0.75 mg p.o. at bedtime, and oxycodone IR 5 mg p.o. twice daily as needed for pain, losartan 25 mg as needed for pain. ACTIVITY: To be up ad shivam. DIET: She is to follow a sodium-restricted and fluid-restricted diet. DISCHARGE INSTRUCTIONS: I have asked that she use her stockings to decrease the risk for worsening p eripheral edema and also to keep her compression stockings on during the daytime every day if possibl e. The patient should call to obtain an appointment with my office and return promptly to the emerge ncy department should she experience chest pain, pressure, tightness, shortness of breath, or other c linical symptoms of concern. /[id number]/MODL
== END 2018-06-16 18:00 | disposition home or self-care (01) | DRG 292 ==
LOC: F2W 17:03
PROVIDERS: ADMIT Internal Medicine Cardiovascular Disease; ATTEND Internal Medicine Cardiovascular Disease
PROC: 02HV33Z Insertion of Infusion Device into Superior Vena Cava, Percutaneous Approach (ICD-10-PCS; principal; 2018-06-12)
DX: I11.0 Hypertensive heart disease with heart failure (principal); I50.810 Right heart failure, unspecified; L03.116 Cellulitis of left lower limb; I48.0 Paroxysmal atrial fibrillation; I25.10 Atherosclerotic heart disease of native coronary artery without angina pectoris; E78.5 Hyperlipidemia, unspecified; G47.33 Obstructive sleep apnea (adult) (pediatric); Z95.1 Presence of aortocoronary bypass graft; Z96.642 Presence of left artificial hip joint
CPT/HCPCS: 97116-GP; 97161-GP; C1751; J1250; J1940